=== PATIENT | male | born 1970 | race Caucasian/White ===

== ENCOUNTER → 2017-02-04 | Outpatient (CLI) | payer BC | END | disposition home or self-care (01) | LOC: CDC 09:34 | DX: R00.1 Bradycardia, unspecified (principal); M25.561 Pain in right knee; M17.11 Unilateral primary osteoarthritis, right knee; M21.161 Varus deformity, not elsewhere classified, right knee | CPT/HCPCS: 93000 ==

== ENCOUNTER 2017-02-20 11:17 | Emergency (ER) | payer BC ==
[~2017-02-20] VITALS: Ht 190.5 cm; Wt 120.3 kg
[2017-02-20 11:44] LABS: EOSINOPHIL (%) 2.2 % (0-5); EOSINOPHIL COUNT 0.2 K/uL (0-0.3); HEMATOCRIT 44.1 % (38.0-50.0); IMMATURE GRANULOCYTE (%) 0.3 % (0.0-0.7); INSTRUMENT ABS NEUTROPHIL CT 5.3 K/uL; LYMPHOCYTE COUNT 1.6 K/uL (1.0-2.8); MCH 26.8 PG (29.0-34.0); MCHC 32.7 G/DL (30.0-36.0); MCV 82.1 FL (86-99); MEAN PLAT.VOLUME 10.1 uM^3 (9.0-12.4); MONOCYTE COUNT 0.5 K/uL (0-0.8); NEUTROPHIL (%) 69.3 % (45-76); NEUTROPHIL COUNT 5.3 K/uL (1.8-6.4); PLATELET COUNT 221 K/uL (156-360); RBC DIS.WIDTH-CV 13.4 % (11.8-14.6); RBC DIS.WIDTH-SD 39.9 % (39-53); RED BLOOD COUNT 5.37 M/uL (4.00-5.50); WHITE BLOOD COUNT 7.6 K/uL (4.1-10.2)
[2017-02-20 11:55] LABS: D-DIMER ELISA 1.77 mg/L FEU (< 0.57)
[2017-02-20 11:56] LABS: CHLORIDE 102 mEq/L (99-109); POTASSIUM 3.5 mEq/L (3.7-5.4); SODIUM 138 mEq/L (136-147)
[2017-02-20 11:58] LABS: GLUCOSE 104 mg/dL (70-99)
[2017-02-20 11:59] LABS: ANION GAP 11 MEQ/L (2-14)
[2017-02-20 12:00] LABS: TOTAL BILIRUBIN 0.7 mg/dL (0.0-1.0)
[2017-02-20 12:02] LABS: ALKALINE PHOSPHATASE 56 IU/L (3-129); GFR ESTIMATE (CALCULATED) > 59 mL/min/
[2017-02-20 12:03] LABS: UREA NITROGEN (BUN) 11 mg/dL (9-23)
[2017-02-20] MEDS ORDERED: NAPROXEN500 MG PO (12:59)
[2017-02-20 13:21] VITALS: BP 149/103
== END 2017-02-20 13:22 | disposition home or self-care (01) ==
LOC: EME 11:17
PROVIDERS: Physician Assistant
DX: R07.81 Pleurodynia (principal)
CPT/HCPCS: 71020; 71275; 80053; 85025; 85379; 93005; 99281; 99284; J1885; J7120